=== PATIENT | male | born 1945 | race Asian ===

== ENCOUNTER 2016-11-24 22:12 | Emergency (ER) | payer MEDICARE ==
[~2016-11-24] VITALS: Ht 190.5 cm; Wt 111.0 kg
[~2016-11-24 22:12] MED LIST: ALLO300T2 PO; ASPI-973 PO; PENT400T PO; SIMV20TA4 PO
[2016-11-24 22:22] VITALS: BP 131/83; PULSE 64; RESP 18; O2SAT 95
--- NOTE | 2016-11-24 23:01 | ED.REPORT ---
HPI-General Illness Date of Service Nov 24, 2016 ED Provider: Dr. Perez 70 y/o male with a hx of vasculitis and peripheral neuropathy presents to the ED complaining of a several episodes of dizziness throughout the day today. The pt woke up and was dizzy at 0300 today. He went back to sleep and felt better for most of the day. At 20:00, the pt was dizzy again while he was resting. He reports another episode an hour ago when he was changing his clothes and again while he was lying in bed to sleep tonight. He states "I could not take my pants and socks off. Then, I felt like I was going to fall out of the bed." Associated sx include mild nausea, diaphoresis and mild numbness in both feet. He also states "I got up to walk and I could only walk to the right because of the dizziness". He denies weakness in either leg, chest pain, shortness of breath and vomiting. He has an MRI scheduled soon. Nursing Notes Stated Complaint: DIZZY/SPINNING, NAUSEA, SHORTNESS OF ROOM Chief Complaint: General Complaint Nursing Notes Reviewed: Yes Allergies: Coded Allergies: Penicillins (Verified Allergy, Severe, 05/09/15) Scheduled Allopurinol (Allopurinol) 300 Mg Tablet 300 MG PO DAILY Aspirin (Aspirin) 81 Mg Tablet 81 MG PO DAILY Pentoxifylline (Pentoxifylline) 400 Mg Tablet.er 400 MG PO TID Simvastatin (Simvastatin) 20 Mg Tablet 20 MG PO HS Scheduled PRN Meclizine (Bonine) 25 Mg Tab.chew 25 MG PO TID PRN PRN vertigo General Time Seen by MD: 23:01 Chief Complaint Dizziness Hx Obtained From: Patient Arrived By: Walk-in Sudden in Onset?: Yes Onset Occurred: 9 - 12 hours ago Symptom Duration: Intermittent Severity: Current: No pain currently Severity: Maximum: No pain Recent Healthcare: No recent doctor visit Similar Sx Previous: No Past Medical History Past Medical History gangrene Vasculitis (unknown) Adrenal nodule AAA without rupture More depressive disorder Pulmonary nodule right Peripheral neuropathy Gout Past Surgical History Reports: Appendectomy Family History parents: CHF sister: Parkinson's Smoking History Current Every Day Smoker Social History Alcohol Use: Denies alcohol use Other Social History: Occupation retired integration software engineer Ambulatory Status Independent Review of Systems Full Review of Systems Respiratory: Denies: Shortness of breath Cardiovascular: Denies: Chest pain GI: Reports: Nausea, Denies: Vomiting Skin: Reports Diaphoresis Neurologic: Reports: Dizziness, Numbness (in both feet), Denies: Weakness (lower extremities) Complete sys rev & neg: except as marked. Physical Exam Vital Signs Vital Signs Date Time Temp Pulse Resp B/P Pulse Ox O2 Delivery O2 Flow Rate FiO2 11/25/16 01:11 36.6 64 17 134/80 96 Room Air 11/24/16 22:22 35.8 64 18 131/83 95 Room Air Initial VS: Reviewed Head / Eyes: Atraumatic, Normocephalic Neck: Supple, Non-tender, Full range of motion Respiratory: Breath sounds normal, Clear to auscultation, No respiratory distress Cardiovascular: Regular rate & rhythm, Heart sounds normal, Intact distal pulses Abdomen / GI: Soft, Non-tender Skin: Warm, Dry, No cyanosis General/Constitutional: Awake, Alert, No acute distress, Cooperative Neurologic: Oriented X3, Speech NL, No motor deficits, No sensory deficits Interpretation & Diagnostics Lab Results Interpretation Result Diagram: 11/25/16 0020 11/25/16 0020 Test 11/25/16 00:20 11/25/16 00:45 White Blood Count 9.7th/mm3 (3.8-10.1) Red Blood Count 4.52mil/mm3 (4.40-5.80) Hemoglobin 13.5g/dL (13.8-17.2) Hematocrit 40.5% (41.0-50.0) Mean Corpuscular Volume 89.6fL (81-100) Mean Corpuscular Hemoglobin 29.9pg (27.0-35.0) Mean Corpuscular Hemoglobin Concent 33.3% (32.0-37.0) Red Cell Distribution Width 13.6% (12.3-15.4) Platelet Count 285bil/L (150-400) Neutrophils (%) (Auto) 75.9% (40-74) Lymphocytes (%) (Auto) 14.7% (14-46) Monocytes (%) (Auto) 5.5% (4-12) Eosinophils (%) (Auto) 3.2% (0-5) Basophils (%) (Auto) 0.4% (0-3) Erythrocyte Sedimentation Rate 9mm/hr (0-30) Prothrombin Time 10.3sec (8.1-12.5) Prothromb Time International Ratio 0.96ratio Activated Partial Thromboplast Time 28.3sec (22.8-33.0) Sodium Level 139mEq/L (134-144) Potassium Level 4.1mEq/L (3.5-5.2) Chloride Level 102mEq/L (97-108) Carbon Dioxide Level 22mmol/L (18-29) Blood Urea Nitrogen 17mg/dL (8-27) Creatinine 1.06mg/dL (0.76-1.27) Estimat Glomerular Filtration Rate 73mL/min (>59) Glucose Level 130mg/dL (60-99) Calcium Level 8.8mg/dL (8.5-10.1) Total Bilirubin 0.3mg/dL (0.0-1.2) Aspartate Amino Transf (AST/SGOT) 12U/L (0-50) Alanine Aminotransferase (ALT/SGPT) 11U/L (0-44) Alkaline Phosphatase 106U/L (25-160) Troponin T 0.010ug/L (0.0-0.011) Pro-B-Type Natriuretic Peptide 146.3pg/mL (0-376) Total Protein 6.6g/dL (6.4-8.4) Albumin 3.7g/dL (3.4-5.0) Alcohols < 10mg/dL (0-10) Urine Color Yellow (YELLOW) Urine Appearance Clear (CLEAR,HAZY) Urine pH 6.5 (5.0-8.0) Urine Specific [place] 1.020 (1.003-1.035) Urine Protein Negativemg/dL (NEG,TRACE) Urine Glucose (UA) Negativemg/dL (NEGATIVE) Urine Ketones Negativemg/dL (NEGATIVE) Urine Occult Blood Negative (NEGATIVE) Urine Nitrite Negative (NEGATIVE) Urine Bilirubin Negative (NEGATIVE) Urine Urobilinogen 1.0mg/dL (NORMAL) Urine Leukocyte Esterase Negative (NEGATIVE) Urine RBC 0-2/hpf (0-2) Urine WBC 0-5/hpf (0-5) Urine Epithelial Cells Occasional/hpf (NONE-MOD) Urine Crystals Oxalic acid crystals (NONE Urine Bacteria Few/hpf (NONE-FEW) Urine Hyaline Casts None/lpf (NONE) Urine Granular Casts None seen (NONE SEEN) Urine Waxy Casts None seen (NONE SEEN) Urine Red Blood Cell Casts None seen (NONE SEEN) Urine White Blood Cell Casts None seen (NONE SEEN) Urine Mucus Present (None Seen) Urine Trichomonas None seen (NONE SEEN) Urine Yeast None (NONE SEEN) Urinalysis Comment None Urine Culture Reflexed Not indicated Urine Opiates Screen Negative Urine Methadone Screen Negative Urine Barbiturates Screen Negative Urine Amphetamines Screen Negative Urine Benzodiazepines Screen Negative Urine Cocaine Metabolite Screen Negative Urine Cannabinoids Screen Negative ECG Interpretation ECG Interpretation: Normal sinus rhythm. Rate 65. Probable left atrial enlargement RBBB and LAFB Time: 23:36 Interpreted by: ED physician CT Head Interpretation Impression: No CT evidence of hemorrhage, mass or acute infarct Signed by Dr. Pramod Chavez 11/25/16 23:47 Study: Head CT no contrast Interpretation / Wet Read by: Interpret - Radiologist Re-Eval/Medical Decision Med Decision/Clinical Course 70-year-old presents with acute onset of vertigo that appears entirely consistent with BPPV. He has an seen history of concern, including history of vasculitis, possibly giant cell arteritis, and known vascular disease. CT was unremarkable. His story, the position Alley, and the acuity I will point to BPPV. Discussed María maneuvers in detail. Home with detailed instructions. Meclizine when necessary. Follow-up with PCP. Source of Hx: Old records Time of Eval: 01:05 Re-Evaluation/Progress Note: Rechecked pt. Discussed lab results, imaging results, diagnosis and plan to discharge. Pt understands and agrees with the plan. F/U instructions and RTER warning given. All questions addressed. Counseled Regarding: Diagnosis, Lab results, Need for follow-up, When/why to return to ED Discharge & Departure Primary Impression: Benign paroxysmal positional vertigo Laterality: right Qualified Code: H81.11 - Benign paroxysmal vertigo, right ear Disposition: Home Discharge Condition All VS Reviewed: Yes Condition: Stable Patient Instructions: Benign Paroxysmal Positional Vertigo (ED), Vertigo (ED) Additional Instructions: Your vertigo appears to be peripheral and not central. We see no evidence of stroke. The commonest cause of peripheral vertigo is displacement of small crystals in the balance organ of the inner ear. These can be repositioned by so-called María maneuvers. These are described in detail on the handout enclosed. He may take meclizine three times daily if needed for vertigo. Follow up with your doctor in the office. Go through the María maneuvers at least once in each direction this evening and again tomorrow if you are still having symptoms. Return for any new symptoms of concern, particularly sided numbness, weakness, or any other new symptoms. Referrals: Kevin Nevarez MD (PCP) Scribe Attestation Portions of this note were transcribed by a[place]blo Rivas. I, Dr. Perez, personally performed the history, physical exam and medical decision-making;I reviewed and confirmed the accuracy of the information in the transcribed note. Signed by Diana Scherer. 11/25/16 02:06 copies to: Kevin Nevarez MD, Christopher W MD Nov 24, 2016 23:01 Pablo Rivas Nov 25, 2016 01:38
[2016-11-25 00:42] LABS: BASOPHILS % (AUTO) 0.4 % (0-3); EOSINOPHILS % (AUTO) 3.2 % (0-5); MONOCYTES % (AUTO) 5.5 % (4-12); Mean Corpuscular Hemoglobin 29.9 pg (27.0-35.0); Mean Corpuscular Volume 89.6 fL (81-100); NEUTROPHILS % (AUTO) 75.9 % (40-74); Platelet Count 285 bil/L (150-400)
[2016-11-25] MEDS ORDERED: MECL-114 PO (00:57)
[2016-11-25 01:10] LABS: INR 0.96 ratio
[2016-11-25 01:11] VITALS: BP 134/80; PULSE 64; RESP 17; O2SAT 96
[2016-11-25 01:16] LABS: APPEARANCE,URINE CLEAR (CLEAR,HAZY); COLOR,URINE YELLOW (YELLOW); OCCULT BLOOD,URINE NEGATIVE (NEGATIVE); PH,URINE 6.5 (5.0-8.0)
[2016-11-25 01:22] LABS: ERYTHROCYTE SEDIMENTATION RATE 9 mm/hr (0-30)
--- NOTE | 2016-11-25 10:29 | DRSVH ---
PROCEDURE: CT BRAIN WITHOUT CONTRAST ([id number]) INDICATIONS: Stroke TECHNIQUE: Noncontrast 4.5 mm thick angled axial sections acquired from the foramen magnum to the vertex, with c oronal reformats. COMPARISON: [facility], CT, CT BRAIN WO CON, 05/09/2015, 16:50. FINDINGS: Image quality: Excellent. CSF spaces: Basal cisterns are patent. No extra-axial fluid collections. The ventricles are symmet pop in size and shape. Brain: No intracranial bleeds or masses. There is cerebral volume loss for age, with resultant vent ricular and sulcal prominence. There are periventricular and deep white matter chronic small vessel ischemic changes. There is intracranial internal carotid artery atherosclerosis. Skull and face: Calvarium and visualized facial bones appear intact, without suspicious lesions. Sinuses: Visualized sinuses and mastoids are clear. IMPRESSION: 1. No acute intracranial process. 2. Moderate atrophy and chronic microvascular ischemic changes. Dictated by: Yadi Lima M.D. on 11/25/2016 at 10:25 Approved by: Yadi Lima M.D. on 11/25/2016 at 10:27
== END 2016-11-25 01:12 | disposition home or self-care (01) ==
LOC: SED 22:12
DX: H81.11 Benign paroxysmal vertigo, right ear (principal); F17.200 Nicotine dependence, unspecified, uncomplicated; Z79.899 Other long term (current) drug therapy; Z88.0 Allergy status to penicillin
CPT/HCPCS: 36415; 70450; 80053; 81000; 83880; 84484; 85025; 85610; 85651; 85730; 93005; 99284; G0481